=== PATIENT | male | born 1985 ===

== ENCOUNTER 2016-11-22 18:12 | Emergency (ER) | payer BC ==
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
--- NOTE | 2016-11-22 20:22 | RAD ---
INDICATION: Right knee injury. TECHNIQUE: 4 views of the right knee were obtained. FINDINGS: There is anterior soft tissue swelling. The patient appears to be status post anterior cruciate ligament repair. There is a large joint effusion present. No fracture is seen. Joint spaces appear maintained. IMPRESSION: 1. LARGE JOINT EFFUSION, NO FRACTURE IS SEEN. 2. STATUS POST ANTERIOR CRUCIATE LIGAMENT REPAIR.
== END 2016-11-22 20:38 | disposition home or self-care (01) ==
LOC: UCEAST 18:12
DX: S86.812A Strain of other muscle(s) and tendon(s) at lower leg level, left leg, initial encounter (principal); V18.4XXA Pedal cycle driver injured in noncollision transport accident in traffic accident, initial encounter; Y93.55 Activity, bike riding; Y92.9 Unspecified place or not applicable; Y99.9 Unspecified external cause status; M25.461 Effusion, right knee; S89.91XA Unspecified injury of right lower leg, initial encounter
CPT/HCPCS: 99201; G0463